=== PATIENT | female | born 1985 | race Caucasian/White ===

== ENCOUNTER → 2017-11-11 | Outpatient (CLI) | payer OTHER ==
[~2017-11-11] VITALS: Ht 167.6 cm; Wt 86.6 kg
[~2017-11-11] MED LIST: MULTI VITAMINS1 TAB PO
[2017-11-11 17:02] VITALS: BP 110/60; PULSE 72
== END ==
LOC: LIGHT 16:52
DX: Z98.84 Bariatric surgery status (principal); E66.01 Morbid (severe) obesity due to excess calories; Z68.30 Body mass index [BMI] 30.0-30.9, adult; Z71.3 Dietary counseling and surveillance
CPT/HCPCS: G0463

== ENCOUNTER → 2017-12-09 | Outpatient (CLI) | payer OTHER ==
[~2017-12-09] VITALS: Ht 167.6 cm; Wt 86.4 kg
[2017-12-09 16:38] VITALS: BP 112/70; PULSE 60
== END ==
LOC: LIGHT 10:14
DX: E66.9 Obesity, unspecified (principal); Z68.31 Body mass index [BMI] 31.0-31.9, adult; Z71.3 Dietary counseling and surveillance
CPT/HCPCS: G0463